=== PATIENT | female | born 1985 | race Caucasian/White ===

== ENCOUNTER 2019-05-31 22:42 | Emergency (ER) | payer SELFPAY ==
[2019-05-31 22:45] VITALS: BP 122/78; PULSE 104; RESP 16; TEMP 37; O2SAT 96; BMI 29.2
--- NOTE | 2019-05-31 23:43 | XR_ITS ---
WS: [id number] LEFT SHOULDER: 3 VIEW(S) TECHNIQUE: Internal and external rotation with Y view. HISTORY: injury COMPARISON: None available. No fracture or dislocation or soft tissue abnormality. Glenohumeral and AC joints are unremarkable. XR/XR shoulder LT min 2V* [id number] IMPRESSION: Normal LEFT shoulder.
--- NOTE | 2019-05-31 23:44 | ED_ITS ---
Entered by Mary Newton, acting as scribe for Ayden Rivera MD May 31, 2019 22:42 HPI - Extremity Problem General: Chief complaint: Extremity Injury, Upper Stated complaint: arm pain Time Seen by Provider: 05/31/19 23:43 Source: patient Mode of arrival: ambulatory Limitations: no limitations History of Present Illness: HPI Narrative: 33 yo f came to the er for upper ext pain. Onset was today. Pt states that she was packing and she felt a pop in her shoulder. Pt states that she has a pain all through her left arm. Pt states that she has been having some spasms. MD Complaint: extremity pain Onset (ago): day(s) (today) Pain Consistency: constant Location: left Quality: other (pain) Relieving factors: nothing Exacerbating factors: nothing Associated symptoms: Deny chest pain, fever(s) or rash Review of Systems Const: Denies: fever or chills Eyes: Denies: change in vision ENMT: Denies: throat pain or mouth pain Card: Denies: chest pain Resp: Denies: shortness of breath GI: Denies: abdominal pain, vomiting or diarrhea : Denies: difficulty urinating Musc: Reports: extremity pain and joint pain; Denies: back pain Skin/Breast: Denies: rash Neuro: Denies: headache Psych: Denies: depression Endo: Denies: excessive urination Perico/Lymph: Denies: easy bruising All/Imm: Denies: hives PFSH ED PFSH: Statuses (acute, chronic, etc) shown below reflect problem list status as previously entered and may not be historically accurate Social History Smoking and tobacco status: current every day smoker Physical Exam Const: COMMON NORMALS: no apparent distress and healthy appearing HENMT: COMMON NORMALS: normocephalic and external nose normal HEAD & SCALP: normocephalic NOSE: external nose normal and no nasal discharge (nasal dischage) Eye: COMMON NORMALS: PERRL PUPIL: Yes PERRL Neck/C-Spine: COMMON NORMALS: full ROM and no lymphadenopathy Chest: COMMONS NORMALS: inspection of chest normal Resp: COMMON NORMALS: normal respiratory effort and clear to auscultation bilaterally AUSCULTATION: clear to auscultation bilaterally Cardio: COMMON NORMALS: regular rate and regular rhythm RATE: regular rate RHYTHM: regular rhythm GI: COMMON NORMALS: soft to palpation PALPATION: Yes soft Extremity: LEFT UPPER EXTREMITY: Yes shoulder joint OTHER: Muscle spasms and tenderness over left trapezius. Patient has full range of motion of left arm but does have pain in the shoulder with movement of that arm. No obvious fracture or dislocation Psych: COMMON NORMALS: mental status grossly normal and cooperative Skin: COMMON NORMALS: no rashes or lesions noted GENERAL SKIN EXAM: no rashes or lesions noted Course Vital Signs: Vital signs: Vital Signs Temperature 98.6 F 05/31/19 22:45 Pulse Rate 80 05/31/19 23:46 Respiratory Rate 16 05/31/19 22:45 Blood Pressure 122/78 05/31/19 22:45 Pulse Oximetry 96 05/31/19 22:45 MDM - Extremity (Nontraumatic) MDM Narrative: Medical decision making narrative: Patient presents here with left shoulder pain. From patient's history it sounds like she may have dislocated her shoulder and it spontaneously relocated. She is having muscle spasms currently patient given Valium here and placed in a sling. She is to resume activities as tolerated and will prescribe her Naprosyn and Robaxin. She is to follow-up with Dr. Raymundo with orthopedics outpatient or her PCP. She is return if worsening. Imaging Data^: xr l shoulder: Attestation: I personally reviewed and interpreted this imaging study as follows: My impression: No acute abnormality Discharge Plan Discharge Patient Disposition: Home, Self-Care Clinical Impression: Acute pain of left shoulder Condition: Stable Prescriptions: New Robaxin-750 750 mg tablet 750 mg PO Q6H Qty: 30 RF: 0 EC-Naprosyn 500 mg tablet,delayed release (DR/EC) 500 mg PO BID PRN (Reason: pain) Qty: 20 RF: 0 No Action albuterol sulfate 0.63 mg/3 mL Solution For Nebulization 0.63 mg INHALATION Q4H PRN (Reason: Shortness Of Breath) RF: 0 Singulair 10 mg Tablet 10 mg PO DAILY RF: 0 albuterol sulfate 90 mcg/actuation Hfa Aerosol Inhaler 1 puff INHALATION QID PRN (Reason: Shortness Of Breath) RF: 0 Discharge Orders: Discharge Order (Routine); Ordered 06/01/19 Ordered By: Ayden Rivera Referrals: Mariely Granados MD [Physician] - 4-7 days Discharge Diet: Advance as tolerated Discharge Activity: Increase activity as tolerated Discharge Date/Time: 06/01/19 00:14 Coding Level of Care Code ED [employer] Specialist for Chg Fwd Exam Problem Focused The documentation recorded by the Aman faustin Stephanie Lyn, accurately reflects the service I personally performed and the decisions made by me, Ayden Rivera MD May 31, 2019 22:42
[2019-05-31 23:46] VITALS: PULSE 80
--- NOTE | 2019-06-01 10:54 | DCPLANNER ---
plastic manager had message to schedule a follow up appointment for patient with ortho. plastic manager called the ortho clinic, spoke with Pat, gave clinic patients information. plastic manager was told that patients information would be printed and reviewed. Clinic will call spring encaser and patient with appointment information.
--- NOTE | 2019-06-02 12:31 | DCPLANNER ---
A follow up appointment is scheduled for Saturday, June 08, 2019 at 10:[address] Maria. Clinic will call patient with appointment information.
--- NOTE | 2019-06-08 16:07 | DCPLANNER ---
Appointment scheduled for 06.08.19 has been cancelled.
== END 2019-06-01 00:14 | disposition home or self-care (01) ==
PROVIDERS: Emergency Provider Emergency Medicine
DX: M25.512 Pain in left shoulder (principal); F17.210 Nicotine dependence, cigarettes, uncomplicated
CPT/HCPCS: 73030; 99281; 99283

== ENCOUNTER → 2020-09-27 07:51 | Outpatient (BNVA) | payer SELFPAY | PROVIDERS: Visit Provider Obstetrics & Gynecology | DX: T83.32XA Displacement of intrauterine contraceptive device, initial encounter (principal); Z30.9 Encounter for contraceptive management, unspecified | CPT/HCPCS: 81025 ==